=== PATIENT | female | born 1945 | race Caucasian/White ===

== ENCOUNTER 2016-08-22 09:36 | Outpatient (CLI) | payer MEDICARE, OTHER | END 2016-08-22 09:37 | disposition home or self-care (01) | DX: Z12.31 Encounter for screening mammogram for malignant neoplasm of breast (principal) ==

== ENCOUNTER 2016-09-19 18:33 | Outpatient (CLI) | payer MEDICARE, OTHER | END 2016-09-19 18:34 | disposition home or self-care (01) | DX: E11.9 Type 2 diabetes mellitus without complications (principal) ==

== ENCOUNTER 2016-10-23 09:07 | Observation (INO) | payer MEDICARE, OTHER ==
[2016-10-23] MEDS ORDERED: SODIUM CHLORIDE FLUSH 0.9% 10 ML SYRINGE IVP PRN (12:42)
[2016-10-23] MEDS ORDERED: ACETAMINOPHEN 325 MG TABLET PO PRN (12:42)
[2016-10-23] MEDS ORDERED: ONDANSETRON ODT 4 MG TABLET TL PRN (12:42)
[2016-10-23] MEDS ORDERED: NITROGLYCERIN SL 0.4 MG TABLET SL PRN (15:08)
[2016-10-23] MEDS: SODIUM CHLORIDE FLUSH 0.9% 10 ML SYRINGE IVP SCH ×2 (15:36→21:53)
[2016-10-23] MEDS: INSULIN ASPART 300 UNIT/3 ML PEN SUBQ SCH ×2 (17:00→21:53)
[2016-10-23] MEDS ORDERED: INSULIN ASPART 300 UNIT/3 ML PEN SUBQ SCH (17:00)
[2016-10-23] MEDS ORDERED: GABAPENTIN 300 MG CAPSULE PO SCH (21:00)
[2016-10-23] MEDS ORDERED: ATORVASTATIN 10 MG TABLET PO SCH (21:00)
[2016-10-23] MEDS ORDERED: GLUCAGON 1 MG/ML VIAL SUBQ PRN (21:15)
[2016-10-23] MEDS ORDERED: DEXTROSE GEL 37.5 GM TUBE PO PRN (21:15)
[2016-10-23] MEDS ORDERED: DEXTROSE 50% ABBOJECT 25 GM/50 ML SYRINGE IVP PRN (21:15)
[2016-10-23] MEDS ORDERED: DEXTROSE 5% 1,000 ML IV PRN (21:15)
[2016-10-23] MEDS: MELOXICAM 7.5 MG TABLET PO SCH (21:42)
[2016-10-23] MEDS: diphenhydrAMINE 25 MG CAPSULE PO SCH (21:42)
[2016-10-24] MEDS: SODIUM CHLORIDE FLUSH 0.9% 10 ML SYRINGE IVP SCH (06:03)
[2016-10-24] MEDS ORDERED: LEVOTHYROXINE 75 MCG TABLET PO SCH (07:00)
[2016-10-24] MEDS: MELOXICAM 7.5 MG TABLET PO SCH (08:38)
[2016-10-24] MEDS: diphenhydrAMINE 25 MG CAPSULE PO SCH (08:38)
[2016-10-24] MEDS ORDERED: POLYETHYLENE GLYCOL 3350 17 GM PACKET PO SCH (09:00)
[2016-10-24] MEDS ORDERED: CLOPIDOGREL 75 MG TABLET PO SCH (09:00)
[2016-10-24] MEDS ORDERED: hydroCHLOROthiazide 25 MG TABLET PO SCH (09:00)
[2016-10-24] MEDS ORDERED: amLODIPine 5 MG TABLET PO SCH (09:00)
[2016-10-24] MEDS ORDERED: SERTRALINE 50 MG TABLET PO SCH (09:00)
[2016-10-24] MEDS ORDERED: INSULIN GLARGINE 300 UNIT/3 ML PEN SUBQ SCH ×2 (09:00→09:04)
[2016-10-24] MEDS ORDERED: LOSARTAN 50 MG TABLET PO SCH (09:00)
[2016-10-24] MEDS ORDERED: ASPIRIN CHEW 81 MG TABLET PO SCH (09:00)
[2016-10-24] MEDS: INSULIN ASPART 300 UNIT/3 ML PEN SUBQ SCH ×4 (09:31→11:54)
== END 2016-10-24 13:19 | disposition home or self-care (01) ==
DX: I45.5 Other specified heart block (principal); R06.00 Dyspnea, unspecified; I12.9 Hypertensive chronic kidney disease with stage 1 through stage 4 chronic kidney disease, or unspecified chronic kidney disease; E11.649 Type 2 diabetes mellitus with hypoglycemia without coma; E11.22 Type 2 diabetes mellitus with diabetic chronic kidney disease; E78.5 Hyperlipidemia, unspecified; F41.9 Anxiety disorder, unspecified; E89.0 Postprocedural hypothyroidism; I25.10 Atherosclerotic heart disease of native coronary artery without angina pectoris; N18.9 Chronic kidney disease, unspecified; R00.1 Bradycardia, unspecified; E66.9 Obesity, unspecified; G25.81 Restless legs syndrome; I25.2 Old myocardial infarction; Z95.5 Presence of coronary angioplasty implant and graft; Z79.82 Long term (current) use of aspirin; Z79.4 Long term (current) use of insulin; Z79.02 Long term (current) use of antithrombotics/antiplatelets; Z68.33 Body mass index [BMI] 33.0-33.9, adult
CPT/HCPCS: 36415; 71010; 80053; 83690; 83735; 83880; 84484; 85025; 93005; 93010; 99284; 99285; A9270; G0378

== ENCOUNTER 2016-11-03 09:27 | Emergency (ER) | payer MEDICARE, OTHER | END 2016-11-03 14:38 | disposition short-term general hospital (02) | DX: I45.5 Other specified heart block (principal); I25.10 Atherosclerotic heart disease of native coronary artery without angina pectoris; I10 Essential (primary) hypertension; E78.00 Pure hypercholesterolemia, unspecified; E11.9 Type 2 diabetes mellitus without complications; Z79.4 Long term (current) use of insulin; E03.9 Hypothyroidism, unspecified; M19.90 Unspecified osteoarthritis, unspecified site; Z79.82 Long term (current) use of aspirin ==

== ENCOUNTER 2016-11-03 14:41 | Outpatient (CLI) | payer MEDICARE, OTHER | END 2016-11-03 14:42 | disposition short-term general hospital (02) | DX: I45.5 Other specified heart block (principal); I25.10 Atherosclerotic heart disease of native coronary artery without angina pectoris | CPT/HCPCS: A0425; A0426 ==

== ENCOUNTER 2016-12-07 18:44 | Outpatient (CLI) | payer MEDICARE, OTHER | END 2016-12-07 18:45 | disposition critical access hospital (66) | DX: R40.20 Unspecified coma (principal); E16.2 Hypoglycemia, unspecified | CPT/HCPCS: A0425; A0427 ==

== ENCOUNTER 2016-12-07 19:00 | Emergency (ER) | payer MEDICARE, OTHER ==
--- NOTE | 2016-12-07 19:28 | ED Physician Documentation ---
History of Present Illness - Stated complaint Stated Complaint: HYPOGLYCEMIA - Chief complaint Chief Complaint: General - History obtained from History obtained from: Patient, Family, EMS - History of Present Illness Timing: Today Pain level max: 0 Pain level now: 0 Improved by: glucose Worsened by: insulin - Additonal information Additional information: Patient with a hypoglycemic event at home tonight. Unconscious. Blood sugar 17 with EMS. Patient is a diabetic. Recently had a pacemaker implanted. She is on Lantus and regular insulin at home. Review of Systems Constitutional: denies: Fever, Chills Ears: denies: Ear pain Nose: denies: Rhinorrhea / runny nose, Congestion Respiratory: denies: Cough GI: denies: Nausea, Vomiting, Diarrhea Skin: denies: Rash Musculoskeletal: denies: Neck pain, Back pain Neurologic: denies: Focal weakness, Numbness PD PAST MEDICAL HISTORY - Past Medical History Cardiovascular: Hypertension, High cholesterol, Coronary artery disease, [place] Respiratory: None Neuro: Other Endocrine/Autoimmune: Type 2 diabetes, HyPOthyroidism GI: None : None Psych: Anxiety Musculoskeletal: Osteoarthritis, Chronic back pain Derm: None - Past Surgical History General: 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 Cardiovascular: Coronary stent, Pacemaker HEENT: Cataracts - Present Medications Home Medications: Ambulatory Orders Medication Instructions Recorded Confirmed Amlodipine Besylate 10 mg PO DAILY 04/12/16 12/07/16 Aspirin 81 mg PO DAILY 04/12/16 12/07/16 Gabapentin 600 mg PO DAILY PM 04/12/16 12/07/16 Levothyroxine Sodium 150 mcg PO DAILY 04/12/16 12/07/16 Losartan/Hydrochlorothiazide 1 each PO DAILY 04/12/16 12/07/16 [Hyzaar 100-25 Tablet] Meloxicam 7.5 mg PO BID 04/12/16 12/07/16 Nitroglycerin [Nitrostat] 0.3 mg SL Q5MIN PRN 04/12/16 12/07/16 Sertraline HCl [Zoloft] 100 mg PO DAILY 04/12/16 12/07/16 diphenhydrAMINE [Benadryl] 25 mg PO BID 04/12/16 12/07/16 Carvedilol [Coreg] 1 tab PO BID 12/07/16 12/07/16 Insulin Aspart [NovoLOG] 10 unit SUBQ TIDWM 12/07/16 12/07/16 Insulin Glargine [Lantus Solostar] 60 unit SUBQ DAILY 12/07/16 12/07/16 Prasugrel HCl [Effient] 10 mg PO DAILY 12/07/16 12/07/16 Ropinirole HCl [Ropinirole HCl] 1 mg PO DAILY 12/07/16 12/07/16 Simvastatin 40 mg PO DAILY 12/07/16 12/07/16 - Allergies Allergies/Adverse Reactions: Allergies Allergy/AdvReac Type Severity Reaction Status Date / Time amoxicillin trihydrate * AdvReac Emesis Verified 12/07/16 19:04 [From Augmentin] metformin AdvReac Emesis Verified 12/07/16 19:04 metformin HCl * AdvReac Emesis Verified 12/07/16 19:04 [From Glucophage] potassium clavulanate * AdvReac Emesis Verified 12/07/16 19:04 [From Augmentin] - Social History Does the pt smoke?: No Smoking Status: Never smoker Does the pt drink ETOH?: No Does the pt have substance abuse?: No - Immunizations Immunizations are current?: Yes PD ED PE NORMAL - Vitals Vital signs reviewed: Yes - General General: Alert and oriented X 3, No acute distress, Well developed/nourished - HEENT HEENT: Moist mucous membranes - Neck Neck: Supple, no meningeal sign - Cardiac Cardiac: RRR, Strong equal pulses, Other (Pacemaker incision in left upper chest is clean dry and intact without signs of infection) - Respiratory Respiratory: No respiratory distress, Clear bilaterally - Abdomen Abdomen: Soft, Non tender, Non distended - Derm Derm: Warm and dry, No rash - Neuro Neuro: Alert and oriented X 3 - Psych Psych: Normal mood, Normal affect Results - Vitals Vitals: Vital Signs - 24 hr 12/07/16 12/07/16 12/07/16 19:01 19:18 19:57 Temperature 35.6 C L 35.5 C L Heart Rate 60 60 Respiratory 22 18 Rate Blood Pressure 133/64 H 140/56 H O2 Saturation 100 98 Oxygen O2 Source Room air - EKG (time done) 1929 Rate: Rate (enter#) (60) Rhythm: Paced (atrial) Computer interpretation: Agree with computer - Labs Labs: Laboratory Tests 12/07/16 12/07/16 19:20 19:20 WBC 6.6 RBC 3.98 L Hgb 11.0 L Hct 32.7 L MCV 82.3 MCH 27.7 MCHC 33.7 RDW 14.5 Plt Count 129 L MPV 7.6 L Neut # 5.3 Lymph # 0.5 L [place] # 0.5 Eos # 0.2 Baso # 0.1 Absolute Nucleated RBC 0.00 Nucleated RBCs 0.0 Sodium 136 Potassium 3.9 Chloride 102 Carbon Dioxide 23 Anion Gap 11.0 BUN 29 H Creatinine 1.1 H Estimated GFR (MDRD) 49 L Glucose 214 H Calcium 8.7 Total Bilirubin 0.5 AST 29 ALT 22 Alkaline Phosphatase 78 Total Protein 7.2 Albumin 4.3 Globulin 2.9 Albumin/Globulin Ratio 1.5 Lipase 20 L PD MEDICAL DECISION MAKING - ED course Complexity details: reviewed results, re-evaluated patient, considered differential, d/w patient, d/w family ED course: Patient presents to the emergency department after a hypoglycemic event tonight. She is tolerating p.o. without difficulty here. Back to her normal baseline mental status. Blood sugar remained elevated in the emergency department. We will decrease her insulin slightly at home. We will have her discuss the use of carvedilol at home with her doctor. Patient and family counseled regarding signs and symptoms for which I believe and urgent re- evaluation would be necessary. Patient with good understanding of and agreement to plan and is comfortable going home at this time This document was made in part using voice recognition software. While efforts are made to proofread this document, sound alike and grammatical errors may occur. Departure - Departure Disposition: 01 Home, Self Care Clinical Impression: Hypoglycemia Condition: Good Instructions: ED Diabetes Hypoglycemia Insulin React Follow-Up: Luis Alberto Woodall MD [Primary Care Provider] - Within 1 week Comments: Decrease your insulin after meals to 8 units until you see your doctor. Return if you worsen. Discharge Date/Time: 12/07/16 20:29
[2016-12-07 19:33] LABS: BASOPHILS # (AUTO) 0.1 10^3/uL (0.0-0.1); EOSINOPHILS # (AUTO) 0.2 10^3/uL (0.0-0.7); EOSINOPHILS % (AUTO) 2.7 %; HCT - HEMATOCRIT 32.7 % (37.0-47.0); LYMPHOCYTES # (AUTO) 0.5 10^3/uL (1.5-3.5); MEAN CORPUSCULAR HEMOGLOBIN 27.7 pg (27.0-31.0); MEAN CORPUSCULAR HGB CONC 33.7 g/dL (32.0-36.0); MEAN CORPUSCULAR VOLUME 82.3 fL (81.0-99.0); MEAN PLATELET VOLUME 7.6 fL (7.9-10.8); MONOCYTES # (AUTO) 0.5 10^3/uL (0.0-1.0); MONOCYTES % (AUTO) 8.3 %; NEUTROPHILS # (AUTO) 5.3 10^3/uL (1.5-6.6); RED BLOOD COUNT 3.98 10^6/uL (4.20-5.40); RED CELL DISTRIBUTION WIDTH 14.5 % (12.0-15.0); UNCORRECTED WHITE BLOOD COUNT 6.6 x10^3/uL; WHITE BLOOD COUNT 6.6 x10^3/uL (4.8-10.8)
[2016-12-07 19:46] LABS: ALBUMIN/GLOBULIN RATIO 1.5 (1.0-2.2); BILIRUBIN,TOTAL 0.5 mg/dL (0.2-1.0); CALCIUM 8.7 mg/dL (8.5-10.3); CREATININE 1.1 mg/dL (0.4-1.0); POTASSIUM 3.9 mmol/L (3.5-5.0); TOTAL PROTEIN 7.2 g/dL (6.7-8.2)
[2016-12-07 20:01] VITALS: BP 140/56
== END 2016-12-07 20:29 | disposition home or self-care (01) ==
LOC: EDUNIT# → ED 19:00
DX: E11.649 Type 2 diabetes mellitus with hypoglycemia without coma (principal); Z79.4 Long term (current) use of insulin; I10 Essential (primary) hypertension; E78.00 Pure hypercholesterolemia, unspecified; I25.10 Atherosclerotic heart disease of native coronary artery without angina pectoris; I25.2 Old myocardial infarction; E03.9 Hypothyroidism, unspecified; M19.90 Unspecified osteoarthritis, unspecified site; Z79.82 Long term (current) use of aspirin
CPT/HCPCS: 36415; 80053; 83690; 85025; 93005; 93010; 99284

== ENCOUNTER 2016-12-19 08:19 | Outpatient (CLI) | payer MEDICARE, OTHER | END 2016-12-19 08:20 | disposition home or self-care (01) | DX: E11.9 Type 2 diabetes mellitus without complications (principal); D64.9 Anemia, unspecified ==

== ENCOUNTER 2016-12-25 09:19 | Outpatient (CLI) | payer MEDICARE, OTHER | END 2016-12-25 09:20 | disposition home or self-care (01) | DX: D64.9 Anemia, unspecified (principal) ==

== ENCOUNTER 2017-01-11 12:15 | Outpatient (CLI) | payer MEDICARE, OTHER ==
[2017-01-11 19:23] LABS: BASOPHILS % (AUTO) 0.6 %; EOSINOPHILS # (AUTO) 0.1 10^3/uL (0.0-0.7); EOSINOPHILS % (AUTO) 2.8 %; HGB - HEMOGLOBIN 10.3 g/dL (12.0-16.0); LYMPHOCYTES # (AUTO) 0.5 10^3/uL (1.5-3.5); LYMPHOCYTES % (AUTO) 11.5 %; MEAN CORPUSCULAR HEMOGLOBIN 26.7 pg (27.0-31.0); MEAN CORPUSCULAR HGB CONC 33.3 g/dL (32.0-36.0); MEAN CORPUSCULAR VOLUME 80.2 fL (81.0-99.0); MEAN PLATELET VOLUME 7.9 fL (7.9-10.8); MONOCYTES # (AUTO) 0.4 10^3/uL (0.0-1.0); MONOCYTES % (AUTO) 9.3 %; NEUTROPHILS # (AUTO) 3.5 10^3/uL (1.5-6.6); NEUTROPHILS % (AUTO) 75.8 %; NUCLEATED RED BLOOD CELLS AUTO 0.1 /100WBC; RED BLOOD COUNT 3.86 10^6/uL (4.20-5.40); RED CELL DISTRIBUTION WIDTH 14.4 % (12.0-15.0); UNCORRECTED WHITE BLOOD COUNT 4.7 x10^3/uL; WHITE BLOOD COUNT 4.7 x10^3/uL (4.8-10.8)
[2017-01-11 19:40] LABS: ALBUMIN/GLOBULIN RATIO 1.3 (1.0-2.2); BILIRUBIN,TOTAL 0.3 mg/dL (0.2-1.0); CALCIUM 8.2 mg/dL (8.5-10.3); CREATININE 0.9 mg/dL (0.4-1.0); POTASSIUM 3.4 mmol/L (3.5-5.0); TOTAL PROTEIN 6.1 g/dL (6.7-8.2)
[2017-01-12 12:24] LABS: H. PYLORI IGG ANTIBODY Negative (Negative); HPYLORI NEG QC Negative (Negative); HPYLORI POS QC POSITIVE (Positive)
== END 2017-01-11 12:16 ==
LOC: LAB.WCP 12:15
PROVIDERS: ATTEND Family Medicine
DX: R10.9 Unspecified abdominal pain (principal)
CPT/HCPCS: 36415; 80053; 82150; 83690; 85025; 87339

== ENCOUNTER 2017-02-24 12:26 | Outpatient (CLI) | payer MEDICARE, OTHER | END 2017-02-24 12:27 | disposition EMS.NT | LOC: EMS 12:26 | PROVIDERS: ATTEND Surgery | DX: R41.0 Disorientation, unspecified (principal); R61 Generalized hyperhidrosis; E16.2 Hypoglycemia, unspecified ==

== ENCOUNTER 2017-03-21 08:50 | Outpatient (CLI) | payer MEDICARE, OTHER ==
[2017-03-21 12:39] LABS: EOSINOPHILS # (AUTO) 0.2 10^3/uL (0.0-0.7); EOSINOPHILS % (AUTO) 5.6 %; HCT - HEMATOCRIT 32.2 % (37.0-47.0); LYMPHOCYTES # (AUTO) 0.6 10^3/uL (1.5-3.5); LYMPHOCYTES % (AUTO) 14.2 %; MEAN CORPUSCULAR HEMOGLOBIN 26.6 pg (27.0-31.0); MEAN CORPUSCULAR HGB CONC 34.1 g/dL (32.0-36.0); MEAN CORPUSCULAR VOLUME 78.1 fL (81.0-99.0); MEAN PLATELET VOLUME 7.8 fL (7.9-10.8); MONOCYTES # (AUTO) 0.4 10^3/uL (0.0-1.0); MONOCYTES % (AUTO) 8.2 %; NEUTROPHILS # (AUTO) 3.1 10^3/uL (1.5-6.6); RED BLOOD COUNT 4.12 10^6/uL (4.20-5.40); RED CELL DISTRIBUTION WIDTH 16.6 % (12.0-15.0); UNCORRECTED WHITE BLOOD COUNT 4.4 x10^3/uL; WHITE BLOOD COUNT 4.4 x10^3/uL (4.8-10.8)
[2017-03-21 12:55] LABS: CALCIUM 8.8 mg/dL (8.5-10.3); CREATININE 0.8 mg/dL (0.4-1.0); POTASSIUM 4.4 mmol/L (3.5-5.0)
[2017-03-21 13:03] LABS: HEMOGLOBIN A1C 0.76 g/dL
== END 2017-03-21 08:51 ==
LOC: LAB.WCP 08:50
PROVIDERS: ATTEND Family Medicine
DX: D64.9 Anemia, unspecified (principal); I10 Essential (primary) hypertension
CPT/HCPCS: 36415; 80048; 83036; 85025

== ENCOUNTER 2017-07-04 08:00 | Outpatient (CLI) | payer MEDICARE, OTHER ==
[2017-07-04 12:30] LABS: BASOPHILS # (AUTO) 0.1 10^3/uL (0.0-0.1); EOSINOPHILS # (AUTO) 0.4 10^3/uL (0.0-0.7); EOSINOPHILS % (AUTO) 7.5 %; HCT - HEMATOCRIT 28.6 % (37.0-47.0); HGB - HEMOGLOBIN 10.1 g/dL (12.0-16.0); LYMPHOCYTES # (AUTO) 0.6 10^3/uL (1.5-3.5); LYMPHOCYTES % (AUTO) 11.7 %; MEAN CORPUSCULAR HEMOGLOBIN 28.2 pg (27.0-31.0); MEAN CORPUSCULAR HGB CONC 35.3 g/dL (32.0-36.0); MEAN PLATELET VOLUME 7.7 fL (7.9-10.8); MONOCYTES # (AUTO) 0.4 10^3/uL (0.0-1.0); MONOCYTES % (AUTO) 8.3 %; NEUTROPHILS # (AUTO) 3.5 10^3/uL (1.5-6.6); NEUTROPHILS % (AUTO) 71.5 %; NUCLEATED RED BLOOD CELLS AUTO 0.1 /100WBC; RED BLOOD COUNT 3.57 10^6/uL (4.20-5.40); RED CELL DISTRIBUTION WIDTH 15.3 % (12.0-15.0); UNCORRECTED WHITE BLOOD COUNT 4.9 x10^3/uL; WHITE BLOOD COUNT 4.9 x10^3/uL (4.8-10.8)
[2017-07-04 13:10] LABS: BUN - BLOOD UREA NITROGEN 35 mg/dL (6-20); CALCIUM 8.6 mg/dL (8.5-10.3); CARBON DIOXIDE - CO2 24 mmol/L (21-32); CHLORIDE 99 mmol/L (101-111); CHOL/HDL RATIO 2.1 (<4.4); CHOLESTEROL 139 mg/dL; CREATININE 1.1 mg/dL (0.4-1.0); GFR - MDRD 49 (>89); GLUCOSE 301 mg/dL (70-100); HDL CHOLESTEROL 67 mg/dL; LDL/HDL RATIO 0.9 (<4.4); POTASSIUM 4.6 mmol/L (3.5-5.0); SODIUM 130 mmol/L (135-145); TRIGLYCERIDES 70 mg/dL; VLDL CHOLESTEROL 14 mg/dL
[2017-07-04 13:13] LABS: HEMOGLOBIN A1C 0.74 g/dL
== END 2017-07-04 08:01 | disposition home or self-care (01) ==
LOC: LAB.WCP 08:00
PROVIDERS: ATTEND Family Medicine
DX: E11.9 Type 2 diabetes mellitus without complications (principal); E78.5 Hyperlipidemia, unspecified; E03.9 Hypothyroidism, unspecified
CPT/HCPCS: 36415; 80048; 80061; 83036; 84443; 85025

== ENCOUNTER 2017-08-11 08:58 | Emergency (ER) | payer MEDICARE, OTHER ==
[2017-08-11] MEDS ORDERED: TETANUS/DIPHTHERIA/PERTUSSIS 0.5 ML SYRINGE IM ONE (09:10)
--- NOTE | 2017-08-11 09:30 | ED Physician Documentation ---
History of Present Illness - Stated complaint Stated Complaint: L THUMB,INDEX FINGER INJURY - Chief complaint Chief Complaint: Ext Problem - Additonal information Additional information: hx from pt fell between bed and dresser yesterday n head neck chest abd etc injury injured L thumb and index - skin tears and bruising, no deformity Review of Systems Cardiac: denies: Chest pain / pressure GI: denies: Abdominal Pain Skin: reports: Laceration (s) Musculoskeletal: reports: Extremity pain. 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 Cardiovascular: Coronary stent, Pacemaker HEENT: Cataracts - Present Medications Home Medications: Ambulatory Orders Medication Instructions Recorded Confirmed Amlodipine Besylate 10 mg PO DAILY 04/12/16 08/11/17 Gabapentin 600 mg PO DAILY PM 04/12/16 08/11/17 Levothyroxine Sodium 150 mcg PO DAILY 04/12/16 08/11/17 Losartan/Hydrochlorothiazide 1 each PO DAILY 04/12/16 08/11/17 [Hyzaar 100-25 Tablet] Meloxicam 7.5 mg PO BID 04/12/16 08/11/17 Sertraline HCl [Zoloft] 100 mg PO DAILY 04/12/16 08/11/17 diphenhydrAMINE [Benadryl] 25 mg PO BID 04/12/16 08/11/17 Carvedilol [Coreg] 2 tab PO BID 12/07/16 08/11/17 Insulin Aspart [NovoLOG] 6 unit SUBQ TIDWM 12/07/16 08/11/17 Insulin Glargine [Lantus Solostar] 50 unit SUBQ DAILY 12/07/16 08/11/17 Ropinirole HCl [Ropinirole HCl] 2 mg PO BID 12/07/16 08/11/17 Simvastatin 40 mg PO DAILY 12/07/16 08/11/17 Clopidogrel [Plavix] 75 mg PO DAILY 08/11/17 08/11/17 Magnesium 250 mg PO DAILY 08/11/17 08/11/17 Multivitamin [Multiple Vitamins] 1 each PO DAILY 08/11/17 08/11/17 - Allergies Allergies/Adverse Reactions: Allergies Allergy/AdvReac Type Severity Reaction Status Date / Time amoxicillin trihydrate * AdvReac Emesis Verified 08/11/17 09:09 [From Augmentin] metformin AdvReac Emesis Verified 08/11/17 09:09 metformin HCl * AdvReac Emesis Verified 08/11/17 09:09 [From Glucophage] potassium clavulanate * AdvReac Emesis Verified 08/11/17 09:09 [From Augmentin] - Social History Does the pt smoke?: No Smoking Status: Never smoker Does the pt drink ETOH?: No Does the pt have substance abuse?: No - Immunizations Immunizations are current?: No Immunizations: TDAP >10years/unknown PD ED PE NORMAL - Vitals Vital signs reviewed: Yes - General General: Alert and oriented X 3 - HEENT HEENT: Atraumatic - Neck Neck: No bony TTP - Derm Derm: Other (skin tears to radial aspect L thenar eminence and to distal phalange L index, no deformity, full ROM, MSV intact) Results - Vitals Vitals: Vital Signs - 24 hr 08/11/17 08/11/17 09:06 10:13 Temperature 36 C L 36.8 C Heart Rate 79 60 Respiratory 16 15 Rate Blood Pressure 125/39 L 138/61 H O2 Saturation 98 100 Oxygen O2 Source Room air - Rads (name of study) hand Radiology: See rad report (possible lucency distal phalanx 2nd finger) PD MEDICAL DECISION MAKING - ED course ED course: on plavix - but did not hit had has no ALVARADO, nl neuro exam and fall occurred ysterday - do not think pt need CTH Departure - Departure Disposition: 01 Home, Self Care Clinical Impression: Skin tear Finger fracture, left Qualifiers: Encounter type: initial encounter Finger: index finger Fracture type: closed Phalanx: distal Fracture alignment: nondisplaced Qualified Code(s): S62.661A - Nondisplaced fracture of distal phalanx of left index finger, initial encounter for closed fracture Condition: Good Instructions: ED Fx Finger Closed, ED Avulsion Dermal Comments: The xrays show a probable non displaced fracture of th index finger - this should heal fine - wear the splint for support and comfort. For the skin tears keep the wounds clean and rry - the steri stripe will peel off over about a week - after that apply antibiotic ointment twice a day until fully healed Return to the ER for signs of infection such as excessive pain, redness, increased swelling,drainage Tylenol and ice as needed for the pain And please see a bilingual manager about the spot on your scalp
[2017-08-11 10:14] VITALS: BP 138/61
--- NOTE | 2017-08-11 10:44 | XRAY Report ---
EXAM: LEFT HAND RADIOGRAPHY EXAM DATE: 08/11/2017 10:07 AM. CLINICAL HISTORY: Fall onto left hand, pain, laceration COMPARISON: None. TECHNIQUE: 3 views. FINDINGS: Bones: Mild apparent bony demineralization diffusely. Subtle lucency at the distal tip of the skull p halanx of the second finger on one of the views, otherwise no acute fracture or focal osseous destruc tion. Joints: No dislocation. [id number] degenerative changes appear most prominent within the DIP cande ints. Soft Tissues: Some overlying bandaging is present at the second finger with soft tissue swelling. No radiopaque foreign body identified. IMPRESSION: 1. Mild apparent bony demineralization. Subtle lucency at the distal tip of the distal phalanx of the second finger on only one of the views, which may reflect mild overlying artifact versus a nondispla [place] fracture. Otherwise, no acute fracture or dislocation identified. 2. Some bandaging is present surrounding the second finger and there is mild apparent soft tissue swe lling. [facility] Referring Provider Line: [phone] SITE ID: [id number]
== END 2017-08-11 11:24 | disposition home or self-care (01) ==
LOC: ED 08:58
DX: S62.661A Nondisplaced fracture of distal phalanx of left index finger, initial encounter for closed fracture (principal); S61.211A Laceration without foreign body of left index finger without damage to nail, initial encounter; W06.XXXA Fall from bed, initial encounter; Y92.013 Bedroom of single-family (private) house as the place of occurrence of the external cause; Z23 Encounter for immunization; I10 Essential (primary) hypertension; E78.00 Pure hypercholesterolemia, unspecified; I25.10 Atherosclerotic heart disease of native coronary artery without angina pectoris; I25.2 Old myocardial infarction; E11.9 Type 2 diabetes mellitus without complications; Z79.4 Long term (current) use of insulin; E03.9 Hypothyroidism, unspecified; M19.90 Unspecified osteoarthritis, unspecified site
CPT/HCPCS: 90471; 99283

== ENCOUNTER 2017-09-25 08:00 | Outpatient (CLI) | payer MEDICARE, OTHER ==
[2017-09-25 12:48] LABS: CALCIUM 8.4 mg/dL (8.5-10.3)
[2017-09-25 13:15] LABS: HB2 TOTAL 11.2 g/dL; HEMOGLOBIN A1C 0.73 g/dL; HEMOGLOBIN A1C % 8.1 % (4.6-6.2)
== END 2017-09-25 08:01 | disposition home or self-care (01) ==
LOC: LAB.WCP 08:00
PROVIDERS: ATTEND Family Medicine
DX: E11.9 Type 2 diabetes mellitus without complications (principal); I25.10 Atherosclerotic heart disease of native coronary artery without angina pectoris; I10 Essential (primary) hypertension; E78.5 Hyperlipidemia, unspecified
CPT/HCPCS: 36415; 80048; 83036

== ENCOUNTER 2017-11-14 08:00 | Outpatient (CLI) | payer MEDICARE, OTHER ==
[2017-11-14 18:49] LABS: BASOPHILS # (AUTO) 0.1 10^3/uL (0.0-0.1); BASOPHILS % (AUTO) 1.2 %; EOSINOPHILS # (AUTO) 0.2 10^3/uL (0.0-0.7); EOSINOPHILS % (AUTO) 4.4 %; HGB - HEMOGLOBIN 10.7 g/dL (12.0-16.0); LYMPHOCYTES # (AUTO) 0.6 10^3/uL (1.5-3.5); MEAN CORPUSCULAR HEMOGLOBIN 28.1 pg (27.0-31.0); MEAN CORPUSCULAR HGB CONC 34.7 g/dL (32.0-36.0); MEAN CORPUSCULAR VOLUME 80.9 fL (81.0-99.0); MEAN PLATELET VOLUME 7.1 fL (7.9-10.8); MONOCYTES # (AUTO) 0.4 10^3/uL (0.0-1.0); MONOCYTES % (AUTO) 7.8 %; NEUTROPHILS # (AUTO) 3.8 10^3/uL (1.5-6.6); NEUTROPHILS % (AUTO) 74.6 %; PLT - PLATELET COUNT 135 10^3/uL (130-450); RED BLOOD COUNT 3.82 10^6/uL (4.20-5.40); RED CELL DISTRIBUTION WIDTH 15.5 % (12.0-15.0); WHITE BLOOD COUNT 5.2 x10^3/uL (4.8-10.8)
== END 2017-11-14 08:01 ==
LOC: LAB.WCP 08:00
PROVIDERS: ATTEND Internal Medicine Cardiovascular Disease
DX: R53.82 Chronic fatigue, unspecified (principal)
CPT/HCPCS: 36415; 84443; 85025

== ENCOUNTER 2017-12-18 08:47 | Outpatient (CLI) | payer MEDICARE ==
[2017-12-18 13:04] LABS: HB2 TOTAL 11.8 g/dL; HEMOGLOBIN A1C 0.83 g/dL; HEMOGLOBIN A1C % 8.6 % (4.6-6.2)
[2017-12-18 13:09] LABS: ALBUMIN 3.9 g/dL (3.2-5.5); ALBUMIN/GLOBULIN RATIO 1.3 (1.0-2.2); ALKALINE PHOSPHATASE 83 IU/L (42-121); ALT ALANINE AMINOTRANSFERASE 20 IU/L (10-60); AST ASPARTATE AMINOTRANSFERASE 24 IU/L (10-42); BILIRUBIN,TOTAL 0.5 mg/dL (0.2-1.0); BUN - BLOOD UREA NITROGEN 24 mg/dL (6-20); CALCIUM 8.9 mg/dL (8.5-10.3); CARBON DIOXIDE - CO2 27 mmol/L (21-32); CHLORIDE 99 mmol/L (101-111); CHOL/HDL RATIO 2.1 (<4.4); CHOLESTEROL 146 mg/dL; CREATININE 0.9 mg/dL (0.4-1.0); GFR - MDRD 62 (>89); GLUCOSE 118 mg/dL (70-100); HDL CHOLESTEROL 71 mg/dL; LDL CHOLESTEROL,CALCULATED 66 mg/dL; LDL/HDL RATIO 0.9 (<4.4); SODIUM 133 mmol/L (135-145); TOTAL PROTEIN 6.9 g/dL (6.7-8.2); VLDL CHOLESTEROL 9 mg/dL
== END 2017-12-18 08:48 | disposition home or self-care (01) ==
LOC: LAB.WCP 08:47
PROVIDERS: ATTEND Family Medicine
DX: I25.10 Atherosclerotic heart disease of native coronary artery without angina pectoris (principal); E11.9 Type 2 diabetes mellitus without complications; E03.9 Hypothyroidism, unspecified; I10 Essential (primary) hypertension; E78.5 Hyperlipidemia, unspecified
CPT/HCPCS: 36415; 80053; 80061; 82043; 83036; 83721; 84443